=== PATIENT | female | born 1960 | race Caucasian/White ===

== ENCOUNTER 2016-08-25 15:37 | Inpatient (IN) | payer OTHER ==
[~2016-08-25] VITALS: Ht 152.4 cm; Wt 104.2 kg
[~2016-08-25 15:37] MED LIST: ALBU8.5H3 INH; AMLO-218 PO; ATOR10TA65 PO; AZIT250T94 PO; CETI10CA PO; FLUT9.9S NASAL; GUAI118L94 PO; METO-429 PO; SYN1 PO; TRIA1CAP PO
[2016-08-25] MEDS ORDERED: ASPIRIN 325 MG TAB PO STA (16:50)
[2016-08-25] MEDS ORDERED: NITROGLYCERIN 2% 1 GM OINT PKT TD STA (16:50)
--- NOTE | 2016-08-25 17:12 | ERA ---
ER Documentation Chief Complaint Date/Time DATE: 08/25/16 TIME: 17:10 Chief Complaint SOB WITH CHEST PAIN FOR THE PAST FEW DAYS. N/V. NO DIAPHORESIS HPI 56-year-old female history of morbid obesity, hypertension, who presents the emergency room with chest pain. She describes several days of chest pain that is pressure-like, exertional with associated shortness of breath. No PND orthopnea, no lower extremity swelling. She denies prior stress testing. No family history of cardiac disease. She denies any pleuritic pain, travel, calf swelling. Mild discomfort 2 out of 10 currently. ROS All systems reviewed and are negative except as per history of present illness. Medications Home Meds Active Scripts Metoprolol Tartrate* (Lopressor*) 50 Mg Tab, 50 MG PO BID, #60 Prov:GORDO MARTINEZ 03/13/14 Reported Medications Levothyroxine Sodium* (Synthroid*) 125 Mcg Tablet, 125 MCG PO BEFORE BREAKFAST, #30 TAB 08/25/16 Triamterene/Hctz* (Maxzide (37.5-25)*) 1 Each Tablet, 1 EACH PO DAILY, #30 TAB 08/25/16 Aspirin* (Aspirin* EC) 81 Mg Tablet.dr, 81 MG PO DAILY, TAB 08/25/16 Amlodipine Besylate* (Norvasc*) 10 Mg Tablet, 10 MG PO DAILY, 0 Refills 09/03/11 Discontinued Reported Medications Levothyroxine Sodium (Levothroid) 100 Mcg Tablet, 100 MCG PO DAILY, 0 Refills 09/03/11 Triamterene/Hydrochlorothiazid (Triamterene W/Hctz 50/25 Cap) 1 Cap Capsule, 1 CAP PO DAILY, 0 Refills 09/03/11 Discontinued Scripts Azithromycin* (Zithromax*) 250 Mg Tablet, 250 MG PO .KatherinePACK DIRECTED, #6 TAB TAKE 500 MG (2 TABS) THE FIRST DAY THEN 250 MG (1 TAB) DAYS 2-5 Prov:LU REDMOND NP 10/15/15 Cetirizine Hcl* (Zyrtec*) 10 Mg Capsule, 10 MG PO DAILY, #30 TAB.CHEW Prov:LU REDMOND NP 10/15/15 Guaifenesin-Codeine Phosphate* (Guaifenesin* with Codeine Liq) 120 Ml Liquid, 5 ML PO Q4H for COUGH, #120 ML Prov:LU REDMOND NP 10/15/15 Fluticasone Propionate (Flonase Allergy Relief) 9.9 Ml Dixon.susp, 1 SPRAY NASAL BID, #1 BOTTLE TO EACH NOSTRIL Prov:LU REDMOND NP 10/15/15 Albuterol Sulfate* (Proair HFA*) 8.5 Gm Hfa.aer.ad, 2 PUFF INH Q4H Y for WHEEZING AND SOB, #1 INHALER Prov:LU REDMOND TORCH SOLDERER 10/15/15 Atorvastatin Calcium (Atorvastatin Calcium) 10 Mg Tab, 10 MG PO HS, #30 TAB Prov:GORDO MARTINEZ S. 03/13/14 Allergies Allergies: Coded Allergies: No Known Drug Allergy (Verified Allergy, Unknown, 08/25/16) PMhx/Soc History of Surgery: Yes (cholecystectomy) Anesthesia Reaction: No Hx Neurological Disorder: No Hx Respiratory Disorders: No Hx Cardiac Disorders: Yes (htn) Hx Psychiatric Problems: No Hx Miscellaneous Medical Probl: Yes (hypothyroid) Hx Alcohol Use: No Hx Substance Use: No Hx Tobacco Use: No FmHx Family History: No coronary disease, No diabetes Physical Exam Vitals Vital Signs Date Time Temp Pulse Resp B/P Pulse Ox O2 Delivery O2 Flow Rate FiO2 08/25/16 17:12 56 18 92/53 98 Nasal Cannula 2.0 08/25/16 17:00 Nasal Cannula 2 08/25/16 15:42 97.8 65 22 118/58 96 Physical Exam General: Well developed, well nourished, no acute distress Head: Normocephalic, atraumatic. Eyes: Pupils equally reactive, EOM intact ENT: Moist mucous membranes Neck: Supple, no lymphadenopathy Respiratory: Lungs clear bilaterally, no distress Cardiovascular: RRR, no murmurs, rubs, or gallops Abdominal: Soft, non-tender, non-distended, no peritoneal signs : Deferred MSK: No edema, no unilateral swelling, 5/5 strength Neurologic: Alert and oriented, moving all extremities, normal speech, no focal weakness, no cerebellar signs Skin: No rash Psych: Normal mood Result Diagram: 08/25/16 1700 08/25/16 1700 Results 24 hrs Laboratory Tests Test 08/25/16 17:00 Activated Partial Thromboplast Time 29.9Sec Alanine Aminotransferase (ALT/SGPT) 46IU/L Albumin 4.0g/dl Albumin/Globulin Ratio 1.21 Alkaline Phosphatase 85IU/L Anion Gap 15 Aspartate Amino Transf (AST/SGOT) 27IU/L B-Type Natriuretic Peptide 58PG/ML Basophils # 0.010^3/ul Basophils % 0.6% Blood Urea Nitrogen 29mg/dl Calcium Level 9.1mg/dl Carbon Dioxide Level 29mmol/L Chloride Level 99mmol/L Creatinine 0.94mg/dl Direct Bilirubin 0.00mg/dl Eosinophils # 0.710^3/ul Eosinophils % 9.9% Globulin 3.30g/dl Glucose Level 107mg/dl Hematocrit 37.7% Hemoglobin 12.3g/dl INR International Normalized Ratio 0.91 Indirect Bilirubin 0.1mg/dl Lymphocytes # 2.210^3/ul Lymphocytes % 31.7% Mean Corpuscular Hemoglobin 29.0pg Mean Corpuscular Hemoglobin Concent 32.6g/dl Mean Corpuscular Volume 88.9fl Mean Platelet Volume 14.2fl Monocytes # 0.510^3/ul Monocytes % 6.9% Neutrophils # 3.610^3/ul Neutrophils % 50.6% Nucleated Red Blood Cells # 0.010^3/ul Nucleated Red Blood Cells % 0.0/100WBC Platelet Count 82674^3/UL Potassium Level 3.4mmol/L Prothrombin Time 12.2Sec Prothrombin Time Ratio 1.0 Red Blood Count 4.2410^6/ul Red Cell Distribution Width 14.3% Sodium Level 140mmol/L Total Bilirubin 0.1mg/dl Total Protein 7.3g/dl Troponin I < 0.012ng/ml White Blood Count 7.110^3/ul Current Medications Medications (Trade) Dose Ordered Sig/Lisa Route PRN Reason Start Time Stop Time Status Last Admin Dose Admin Aspirin (Aspirin) 325 mg ONCE STAT PO 08/25/16 16:50 08/25/16 16:51 DC 08/25/16 16:59 Nitroglycerin (Nitroglycerin 2% Oint) 1 inch ONCE STAT TD 08/25/16 16:50 08/25/16 16:51 DC 08/25/16 17:00 Procedures/MDM EKG, MONITORS, & DIAGNOSTIC IMAGING: EKG: I reviewed and interpreted a 12-lead EKG. Rhythm: Normal sinus rhythm Ectopy: None Intervals: No abnormalities ST segments: No elevations or depressions T waves: No contiguous inversions Repeat EKG: EKG: I reviewed and interpreted a 12-lead EKG. Rhythm: Normal sinus rhythm Ectopy: None Intervals: No abnormalities ST segments: No elevations or depressions T waves: No contiguous inversions Chest x-ray: I reviewed and interpreted a 1 view of the chest Mediastinum: No enlargement Cardiac silhouette: No cardiomegaly Airspace: Clear lung mad[place] bilaterally without evidence of pneumothorax Bones: No evidence of fracture LAB INTERPRETATION: Negative troponin MEDICAL DECISION MAKING: The patient's history, physical exam and clinical presentation is concerning for possible cardiogenic etiology and acute coronary syndrome. Based on the patient's clinical exam and history and risk factors, I have a much lower clinical concern for pulmonary embolism, acute aortic dissection, pneumothorax, pneumonia, cardiac tamponade HEART Score: 3 MACE Rate: 1.7% Shared Decision Making: We had a conversation regarding risk stratification, MACE rate, and the risks, benefits, alternatives of disposition planning options. Disposition planning: Given the patient's progressive, exertional symptoms I would recommend inpatient hospitalization, patient is agreeable. ER COURSE: Patient given aspirin and Nitropaste I kept the patient and/or family informed of laboratory and diagnostic imaging results throughout the emergency room course. DISPOSITION PLAN: Telemetry admission for management of chest pain to rule out acute coronary syndrome, risk stratification, consideration for provocative testing CONSULTATION: Accepting care team and consultations: I discussed the current laboratory data, diagnostic imaging and emergency care provided. Admitting team: Dr. Bryant Admitting team indication: Insurance directed patient is unstable for transfer given active chest pain. Departure Diagnosis: Primary Impression: Chest pain Qualified Code: R07.9 - Chest pain, unspecified type Condition: Stable PAU HERNANDEZ MD Aug 25, 2016 17:12
--- NOTE | 2016-08-25 17:16 | RADRPT ---
PROCEDURE: XR Chest. CLINICAL INDICATION: Chest pain and shortness of breath. TECHNIQUE: Single frontal view. COMPARISON: 10/15/2015. FINDINGS: The lungs are clear. The heart size is normal. There is no pleural effusion. There is no pneumothorax. IMPRESSION: 1. Normal chest radiograph. 2. No change from 10/15/2015. RPTAT: QQ .Casey Finch MD, MD Date Time Electronically viewed and signed by .Casey Finch MD, MD on 08/25/2016 17:15 .R/
[2016-08-25 17:22] LABS: ADD SCAN DIFF NO
[2016-08-25 17:35] LABS: INR 0.91; PARTIAL THROMBOPLASTIN TIME 29.9 Sec (25.0-35.0); PROTIME 12.2 Sec (12.2-14.2)
[2016-08-25 17:43] LABS: CHLORIDE 99 mmol/L (97-110)
[2016-08-25 17:44] LABS: BASOPHILS % 0.6 % (0.0-2.0); EOSINOPHILS # 0.7 10^3/ul (0.0-0.5); EOSINOPHILS % 9.9 % (0.0-7.0); HEMATOCRIT 37.7 % (37.0-47.0); HEMOGLOBIN 12.3 g/dl (12.0-16.0); LYMPHOCYTES # 2.2 10^3/ul (0.8-2.9); LYMPHOCYTES % 31.7 % (15.0-51.0); MEAN CORPUSCULAR HGB CONC 32.6 g/dl (32.0-37.0); MEAN CORPUSCULAR VOLUME 88.9 fl (82.0-101.0); MEAN PLATELET VOLUME 14.2 fl (7.4-10.4); MONOCYTE # 0.5 10^3/ul (0.3-0.9); MONOCYTES % 6.9 % (0.0-11.0); NEUTROPHIL # 3.6 10^3/ul (1.6-7.5); NEUTROPHILS % 50.6 % (39.0-77.0); PLATELET COUNT 165 10^3/UL (140-415); POTASSIUM 3.4 mmol/L (3.5-5.1); RED BLOOD COUNT 4.24 10^6/ul (4.20-5.40); RED CELL DISTRIBUTION WIDTH 14.3 % (11.5-14.5); SODIUM 140 mmol/L (135-144); WHITE BLOOD COUNT 7.1 10^3/ul (4.8-10.8)
[2016-08-25 17:46] LABS: ALBUMIN/GLOBULIN RATIO 1.21; ALKALINE PHOSPHATASE 85 IU/L (42-121); ANION GAP 15 (8-16); ASPARTATE AMINO TRANSFERASE 27 IU/L (15-46); BILIRUBIN,INDIRECT 0.1 mg/dl (0-1.1); BILIRUBIN,TOTAL 0.1 mg/dl (0.2-1.3); BLOOD UREA NITROGEN 29 mg/dl (7-20); CARBON DIOXIDE 29 mmol/L (21-31); CREATININE 0.94 mg/dl (0.44-1.00); GLUCOSE 107 mg/dl (70-220); TOTAL PROTEIN 7.3 g/dl (6.1-8.1)
[2016-08-25 17:47] LABS: ALANINE AMINOTRANSFERASE 46 IU/L (13-69); CALCIUM 9.1 mg/dl (8.4-10.2)
[2016-08-25] MEDS ORDERED: ASPI-664 PO (17:53)
[2016-08-25 17:55] LABS: B-TYPE NATRIURETIC PEPTIDE 58 PG/ML (0-125)
[2016-08-25] MEDS ORDERED: MAXZ25 PO (17:58)
[2016-08-25] MEDS ORDERED: LEVO125T PO (17:59)
[2016-08-25 18:00] LABS: TROPONIN-I < 0.012 ng/ml (0.00-0.12)
[2016-08-25] MEDS ORDERED: ONDANSETRON 4 MG INJ IV PRN ×2 (18:30→21:00)
[2016-08-25] MEDS ORDERED: ACETAMINOPHEN 325 MG TAB PO PRN ×2 (18:30→21:00)
[2016-08-25] MEDS ORDERED: NITROGLYCERIN (SL) 0.4 MG TAB SL PRN (21:00)
[2016-08-25] MEDS ORDERED: HYDROCODONE/APAP (5/325) TAB PO PRN (21:00)
[2016-08-25] MEDS: METOPROLOL 50 MG TAB PO SCH (21:00)
[2016-08-25] MEDS ORDERED: ALBUTEROL/IPRATROPIUM (NEB) 3 ML AMP HHN PRN (21:00)
[2016-08-25] MEDS ORDERED: MAGNESIUM HYDROXIDE 30ML CUP PO PRN (21:00)
[2016-08-25] MEDS ORDERED: hydrALAzine 20 MG INJ IV PRN (21:00)
[2016-08-25] MEDS ORDERED: LORAZEPAM 2 MG INJ IV PRN (21:00)
[2016-08-25] MEDS ORDERED: NA PHOSPHATE/BIPHOS 133 ML ENEMA PR PRN (21:00)
[2016-08-25] MEDS ORDERED: NACL 0.9% 3 ML SYG IV SCH (21:00)
[2016-08-25] MEDS ORDERED: DOCUSATE SODIUM 100 MG CAP PO PRN (21:00)
[2016-08-25 22:20] VITALS: TEMP 98.3
[2016-08-25 22:36] VITALS: PULSE 60
[2016-08-25 22:41] VITALS: Ht 152.4 cm; Wt 104.2 kg
[2016-08-25 22:54] LABS: CK-MB 0.45 ng/ml (0.0-2.4)
[2016-08-25 22:58] LABS: TROPONIN-I 0.012 ng/ml (0.00-0.12)
[2016-08-25] MEDS: morphine 2 MG INJ IV PRN (23:01)
[2016-08-25] MEDS: FAMOTIDINE 20 MG TAB PO SCH (23:03)
[2016-08-25] MEDS: HEPARIN 5,000 UNIT/0.5 ML SYG SC SCH (23:04)
[2016-08-25] MEDS: SOD CHLORIDE 0.45% 1,000 ML IV SCH (23:10)
[2016-08-25 23:33] VITALS: BP 149/70; PULSE 53; RESP 16
[2016-08-26] VITALS (11 sets, daily range): BP systolic 130–147; BP diastolic 60–75; PULSE 50–72; RESP 16–19
[2016-08-26 03:35] LABS: CREATINE KINASE 110 IU/L (23-200)
[2016-08-26 03:45] LABS: CK-MB 0.45 ng/ml (0.0-2.4)
[2016-08-26 03:59] LABS: TROPONIN-I < 0.012 ng/ml (0.00-0.12)
--- NOTE | 2016-08-26 06:43 | HP ---
DATE OF ADMISSION: 08/25/2016 The patient was seen and examined by me on 08/25/2014 at 8:30 p.m. IDENTIFICATION: This is a 56-year-old female. CHIEF COMPLAINT: Chest pain. HISTORY OF PRESENT ILLNESS: A 56-year-old female with past medical history of hypertension, morbid obesity, high cholesterol, hypothyroidism who presents with chest pain symptoms for the past few day s. Again, the patient has been having chest pain for the last few days, pressure-like in sensation, also somewhat exertional and with some mild shortness of breath symptoms, but no PND, no orthopnea, no lower extremity swelling, apparently no family history of any cardiac disease. No upper or lowe r GI bleeding. No nausea, vomiting, no fevers or chills. She describes the chest pressure is about 2/10 in intensity. PAST MEDICAL HISTORY: As stated above. ALLERGIES: NO KNOWN DRUG ALLERGIES. MEDICATIONS AT HOME: 1. Norvasc 10 mg daily. 2. Lopressor 50 mg b.i.d. 3. Aspirin 81 mg daily. 4. Maxzide 37.5/25 one tab daily. 5. Synthroid 125 mcg before breakfast. PAST SURGICAL HISTORY: Cholecystectomy In the past. SOCIAL HISTORY: Negative for smoking, drinking, or IV drug abuse. FAMILY HISTORY: No coronary artery disease or diabetes. PHYSICAL EXAMINATION: VITAL SIGNS: T-max 97.8, pulse 56 to 65, respirations 18 to 20, blood pressure 118 to 92 systolic o casimiro 58 to 53 diastolic, saturating at 98% on 3 liters nasal cannula. GENERAL: The patient is lying in bed, answering questions appropriately, in no acute distress. HEENT: Pupils equal, round, react to light. Extraocular muscles intact. NECK: Supple, no thyromegaly. LUNGS: Clear to auscultation bilaterally. CARDIOVASCULAR: S1, S2 heard. No rubs or gallops. ABDOMEN: Soft, nontender, nondistended. Normal bowel sounds. No rebound or guarding. MUSCULOSKELETAL: No lower extremity edema bilaterally. NEUROLOGIC: No focal deficits. LABORATORY DATA: CBC is completely normal. Actually the comprehensive metabolic panel is essential ly normal except the potassium was 3.4. The troponin is negative x1. IMAGING: The patient had a chest x-ray today that showed no pleural effusions, no pneumothorax, and normal chest radiograph. The patient had an EKG that showed normal sinus rhythm and no ST changes or T-wave inversions were noted. ASSESSMENT AND PLAN: A 56-year-old female coming in with chest pain symptoms, rule out acute abbott ry syndrome. 1. Chest pain. Admit the patient to telemetry floor; rule out for acute coronary syndrome. Trend her troponins. First one is negative thus far. Check 2 more every 6 hours. Put her on high dose a spirin, morphine, oxygen, and nitrates. Continue her beta donnell for now. Check TSH, A1c and lipi d panel. 2. History of hypothyroidism. Continue Synthroid. Check a thyroid panel. 3. History of high cholesterol. Check lipid panel. 4. Essential hypertension. Again continue current blood pressure medicines. 5. Gastrointestinal prophylaxis. Famotidine. 6. Deep venous thrombosis prophylaxis. Heparin subQ. Dictated By: GORDO GILL/SURAJ Conf#: [id number] DID#: [id number]
[2016-08-26 08:26] LABS: CK-MB 0.42 ng/ml (0.0-2.4)
[2016-08-26 08:29] LABS: TROPONIN-I 0.017 ng/ml (0.00-0.12)
[2016-08-26 08:39] LABS: CHOL/HDL RATIO 3.7 RATIO
[2016-08-26] MEDS: LEVOTHYROXINE 125 MCG TAB PO SCH (08:49)
[2016-08-26] MEDS: FAMOTIDINE 20 MG TAB PO SCH ×2 (08:49→21:14)
[2016-08-26] MEDS: METOPROLOL 50 MG TAB PO SCH ×2 (08:49→21:15)
[2016-08-26] MEDS: ASPIRIN (EC) 325 MG TAB PO SCH (08:49)
[2016-08-26] MEDS: HEPARIN 5,000 UNIT/0.5 ML SYG SC SCH ×2 (08:49→21:16)
[2016-08-26 09:04] LABS: THYROID STIMULATING HORMONE 2.1 MIU/L (0.465-4.680)
[2016-08-26 09:27] LABS: ADD SCAN DIFF NO
[2016-08-26 09:33] LABS: POTASSIUM 3.1 mmol/L (3.5-5.1)
[2016-08-26 09:33] LABS: BASOPHILS % 0.5 % (0.0-2.0); EOSINOPHILS # 0.6 10^3/ul (0.0-0.5); EOSINOPHILS % 11.1 % (0.0-7.0); HEMATOCRIT 38.2 % (37.0-47.0); HEMOGLOBIN 12.5 g/dl (12.0-16.0); LYMPHOCYTES # 0.8 10^3/ul (0.8-2.9); LYMPHOCYTES % 14.3 % (15.0-51.0); MEAN CORPUSCULAR HEMOGLOBIN 29.2 pg (29.0-33.0); MEAN CORPUSCULAR HGB CONC 32.7 g/dl (32.0-37.0); MEAN CORPUSCULAR VOLUME 89.3 fl (82.0-101.0); MEAN PLATELET VOLUME 14.2 fl (7.4-10.4); MONOCYTE # 0.3 10^3/ul (0.3-0.9); MONOCYTES % 5.1 % (0.0-11.0); NEUTROPHIL # 3.8 10^3/ul (1.6-7.5); NEUTROPHILS % 68.8 % (39.0-77.0); PLATELET COUNT 128 10^3/UL (140-415); RED BLOOD COUNT 4.28 10^6/ul (4.20-5.40); RED CELL DISTRIBUTION WIDTH 14.4 % (11.5-14.5); WHITE BLOOD COUNT 5.5 10^3/ul (4.8-10.8)
[2016-08-26 09:36] LABS: CREATININE 0.6 mg/dl (0.44-1.00); PHOSPHORUS 3.5 mg/dl (2.5-4.9)
[2016-08-26 09:37] LABS: CALCIUM 8.3 mg/dl (8.4-10.2); MAGNESIUM 2.1 mg/dl (1.7-2.5)
[2016-08-26 09:46] LABS: CK-MB 0.43 ng/ml (0.0-2.4)
[2016-08-26 09:49] LABS: TROPONIN-I 0.015 ng/ml (0.00-0.12)
[2016-08-26] MEDS: SOD CHLORIDE 0.45% 1,000 ML IV SCH (10:02)
--- NOTE | 2016-08-26 17:17 | PN ---
Date/Time of Note Date/Time of Note DATE: 08/26/16 TIME: 17:15 Assessment/Plan VTE Prophylaxis VTE Prophylaxis Intervention: SCD's Lines/Catheters [facility] [place] [facility] Urinary Cath still in place: No Assessment/Plan Chief Complaint/Hosp Course Impression and plan 1. Chest pain. Serial troponins to be trended. Follow-up on echocardiogram. Continue on antiplatelet therapy. Continue telemetry monitoring. 2. Hypothyroidism. Patient to be resumed on her Synthroid 3. Dyslipidemia. Low-fat low-cholesterol diet to be resumed 4. essential hypertension. Continue antihypertensives and adjust as needed DVT prophylaxis: Heparin GERD prophylaxis: H2 donnell Disposition and plan: Follow-up on echocardiogram. DC when medically stable Discussed plan of care with Dr. Bryant Problems: Subjective 24 Hr Interval Summary Free Text/Dictation Reports less chest pain today Exam/Review of Systems Vital Signs Vitals Vital Signs Date Time Temp Pulse Resp B/P Pulse Ox O2 Delivery O2 Flow Rate FiO2 08/26/16 16:15 97.9 66 17 138/75 97 08/26/16 10:16 21 08/26/16 08:00 Nasal Cannula 2.0 Intake and Output 08/25/16 08/25/16 08/26/16 15:00 23:00 07:00 Intake Total 775 ml Balance 775 ml Exam General: Comfortable at present no apparent distress Eyes: Pupils equal round Neck: Supple nontender, no JVD Cardiac: S1-S2 auscultated. Remains in regular rate Pulmonary: No adventitious lung sounds GI: Soft nontender nondistended Extremities: No edema noted bilateral lower extreme Skin: Is clean dry and intact Neurologic: Alert and oriented 4 Results Result Diagram: 08/26/16 0904 08/26/16 0647 Results 24 hrs Laboratory Tests Test 08/25/16 22:05 08/26/16 02:50 08/26/16 06:47 08/26/16 09:04 Creatine Kinase 128 110 108 Creatine Kinase Index 0.4 0.4 0.4 Creatinine Kinase MB (Mass) 0.45 0.45 0.43 Troponin I 0.012 < 0.012 0.015 Anion Gap 15 Blood Urea Nitrogen 19 # Calcium Level 8.3 L Carbon Dioxide Level 28 Chloride Level 101 Cholesterol Level 184 Cholesterol/HDL Ratio 3.7 Creatinine 0.60 Glucose Level 100 HDL Cholesterol 49 Hemoglobin A1c 5.9 LDL Cholesterol, Calculated 107 Magnesium Level 2.1 Phosphorus Level 3.5 Potassium Level 3.1 L Sodium Level 141 Thyroid Stimulating Hormone (TSH) 2.100 Triglycerides Level 142 Basophils # 0.0 Basophils % 0.5 Eosinophils # 0.6 H Eosinophils % 11.1 H Hematocrit 38.2 Hemoglobin 12.5 Lymphocytes # 0.8 Lymphocytes % 14.3 L Mean Corpuscular Hemoglobin 29.2 Mean Corpuscular Hemoglobin Concent 32.7 Mean Corpuscular Volume 89.3 Mean Platelet Volume 14.2 H Monocytes # 0.3 Monocytes % 5.1 Neutrophils # 3.8 Neutrophils % 68.8 Nucleated Red Blood Cells # 0.0 Nucleated Red Blood Cells % 0.0 Platelet Count 128 #L Red Blood Count 4.28 Red Cell Distribution Width 14.4 White Blood Count 5.5 # Medications Medications Current Medications Ondansetron HCl (Zofran Inj) 4 mg Q6H PRN IV NAUSEA AND/OR VOMITING; Start at 21:00 Acetaminophen (Tylenol Tab) 650 mg Q6H PRN PO PAIN LEVEL 1-3 OR FEVER; Start at 21:00 Acetaminophen/ Hydrocodone Bitart ([place] (5/325)) 1 tab Q6H PRN PO MODERATE PAIN LEVEL 4-6; Start 08/25/16 at 21:00 Morphine Sulfate (morphine) 2 mg Q4H PRN IV SEVERE PAIN LEVEL 7-10 Last administered on 08/25/16 23:01; Admin Dose 2 MG; Start 08/25/16 at 21:00 Docusate Sodium (Colace) 100 mg Q12H PRN PO CONSTIPATION; Start 08/25/16 at 21: 00 Magnesium Hydroxide (Milk Of Mag) 30 ml DAILY PRN PO CONSTIPATION; Start at 21:00 Sodium Biphosphate/ Sodium Phosphate (Fleet Enema) 133 ml DAILY PRN [place] CONSTIPATION; Start 08/25/16 at 21:00 Famotidine (Pepcid) 20 mg Q12 PO Last administered on 08/26/16 08:49; Admin Dose 20 MG; Start 08/25/16 at 21:00 Heparin Sodium (Porcine) 5000 unit 5,000 unit Q12 SC Last administered on 08:49; Admin Dose 5,000 UNIT; Start 08/25/16 at 21:00 Sodium Chloride (1/2 NS) 1,000 ml @ 75 mls/hr [id number] IV Last administered on 08/25/16 23:10; Admin Dose 75 MLS/HR; Start 08/25/16 at 20:42 Lorazepam (Ativan) 0.5 mg Q6H PRN IV ANXIETY; Start 08/25/16 at 21:00 Hydralazine HCl (Apresoline) 10 mg Q6H PRN IV ELEVATED BLOOD PRESSURE; Start at 21:00 Clonidine (Catapres) 0.1 mg Q6H PRN PO ELEVATED BLOOD PRESSURE; Start 08/25/16 at 21:00 Nitroglycerin (Nitroglycerin (Sl Tab) 0.4 Mg) 1 tab Q5M PRN SL ANGINA; Start at 21:00 Aspirin (Ecotrin) 325 mg DAILY PO Last administered on 08/26/16 08:49; Admin Dose 325 MG; Start 08/26/16 at 09:00 Metoprolol Tartrate (Lopressor) 50 mg BID PO Last administered on 08/26/16 08: 49; Admin Dose 50 MG; Start 08/25/16 at 21:00 ANNE GONZALES Aug 26, 2016 17:17
[2016-08-26] MEDS: morphine 2 MG INJ IV PRN (21:15)
[2016-08-27] VITALS (12 sets, daily range): BP systolic 111–146; BP diastolic 55–86; PULSE 50–67; RESP 17–21
[2016-08-27] MEDS: SOD CHLORIDE 0.45% 1,000 ML IV SCH ×2 (00:18→18:27)
[2016-08-27] MEDS: LEVOTHYROXINE 125 MCG TAB PO SCH (08:13)
[2016-08-27 08:15] LABS: ADD SCAN DIFF NO
[2016-08-27 08:20] LABS: BASOPHILS % 0.3 % (0.0-2.0); EOSINOPHILS # 0.3 10^3/ul (0.0-0.5); EOSINOPHILS % 4.6 % (0.0-7.0); HEMATOCRIT 42.4 % (37.0-47.0); HEMOGLOBIN 13.7 g/dl (12.0-16.0); LYMPHOCYTES # 1.2 10^3/ul (0.8-2.9); LYMPHOCYTES % 20.2 % (15.0-51.0); MEAN CORPUSCULAR HGB CONC 32.3 g/dl (32.0-37.0); MEAN CORPUSCULAR VOLUME 89.6 fl (82.0-101.0); MEAN PLATELET VOLUME 14.1 fl (7.4-10.4); MONOCYTE # 0.4 10^3/ul (0.3-0.9); MONOCYTES % 6.6 % (0.0-11.0); NEUTROPHIL # 4.1 10^3/ul (1.6-7.5); PLATELET COUNT 151 10^3/UL (140-415); RED BLOOD COUNT 4.73 10^6/ul (4.20-5.40); RED CELL DISTRIBUTION WIDTH 14.6 % (11.5-14.5); WHITE BLOOD COUNT 6.1 10^3/ul (4.8-10.8)
[2016-08-27 08:51] LABS: POTASSIUM 3.2 mmol/L (3.5-5.1)
[2016-08-27 08:54] LABS: CREATININE 0.73 mg/dl (0.44-1.00)
[2016-08-27 08:55] LABS: CALCIUM 8.5 mg/dl (8.4-10.2)
[2016-08-27] MEDS: ASPIRIN (EC) 325 MG TAB PO SCH (08:59)
[2016-08-27] MEDS: FAMOTIDINE 20 MG TAB PO SCH ×2 (08:59→20:59)
[2016-08-27] MEDS: METOPROLOL 50 MG TAB PO SCH ×2 (08:59→21:01)
[2016-08-27] MEDS: HEPARIN 5,000 UNIT/0.5 ML SYG SC SCH ×2 (10:13→21:03)
[2016-08-27] MEDS ORDERED: POTASSIUM CHLORIDE (SR) 20 MEQ TAB PO STA (16:06)
--- NOTE | 2016-08-27 16:10 | PN ---
Date/Time of Note Date/Time of Note DATE: 08/27/16 TIME: 16:08 Assessment/Plan VTE Prophylaxis VTE Prophylaxis Intervention: SCD's Lines/Catheters [facility] Peripheral IV Urinary Cath still in place: No Assessment/Plan Chief Complaint/Hosp Course Impression and plan 1. Chest pain. Troponins negative.. Follow-up on echocardiogram. Continue on antiplatelet therapy. Continue telemetry monitoring. Plan for stress test. Bread Room Hand follow 2. Hypothyroidism. Continue Synthroid 3. Dyslipidemia. On low-fat low-cholesterol diet 4. essential hypertension. Continue antihypertensives and adjust as needed DVT prophylaxis: Heparin GERD prophylaxis: H2 donnell Disposition and plan: Plan for stress test. Awaiting echocardiogram. Bread Room Hand to follow. Discussed plan of care with Dr. Bryant Problems: Subjective 24 Hr Interval Summary Free Text/Dictation no s/s of distress Exam/Review of Systems Vital Signs Vitals Vital Signs Date Time Temp Pulse Resp B/P Pulse Ox O2 Delivery O2 Flow Rate FiO2 08/27/16 15:57 98.5 54 18 119/58 93 08/27/16 04:58 Room Air 08/26/16 10:16 21 08/26/16 08:00 2.0 Intake and Output 08/26/16 08/26/16 08/27/16 14:59 22:59 06:59 Intake Total 750 ml 575 ml Output Total 4 ml 3 ml Balance 746 ml 572 ml Exam General: No acute signs or symptoms of distress Eyes: pupils equal round, Anicteric sclera Neck: Supple nontender, no JVD Cardiac: S1, S2 auscultated, regular rhythm and rate Pulmonary: No coarse rhonchi or breathing auscultated GI: Abdomen soft nontender nondistended, bowel sounds active Extremities: No edema bilateral lower extremities Skin: Clean dry and intact Neurologic: Alert to person place and time and situation Results Result Diagram: 08/27/16 0750 08/27/16 0750 Results 24 hrs Laboratory Tests Test 08/27/16 07:50 Anion Gap 15 Basophils # 0.0 Basophils % 0.3 Blood Urea Nitrogen 15 Calcium Level 8.5 Carbon Dioxide Level 27 Chloride Level 104 Creatinine 0.73 Eosinophils # 0.3 Eosinophils % 4.6 Glucose Level 101 Hematocrit 42.4 Hemoglobin 13.7 Lymphocytes # 1.2 Lymphocytes % 20.2 Mean Corpuscular Hemoglobin 29.0 Mean Corpuscular Hemoglobin Concent 32.3 Mean Corpuscular Volume 89.6 Mean Platelet Volume 14.1 H Monocytes # 0.4 Monocytes % 6.6 Neutrophils # 4.1 Neutrophils % 68.0 Nucleated Red Blood Cells # 0.0 Nucleated Red Blood Cells % 0.0 Platelet Count 151 Potassium Level 3.2 L Red Blood Count 4.73 Red Cell Distribution Width 14.6 H Sodium Level 143 White Blood Count 6.1 Medications Medications Current Medications Ondansetron HCl (Zofran Inj) 4 mg Q6H PRN IV NAUSEA AND/OR VOMITING Last administered on 08/27/16 08:59; Admin Dose 4 MG; Start 08/25/16 at 21:00 Acetaminophen (Tylenol Tab) 650 mg Q6H PRN PO PAIN LEVEL 1-3 OR FEVER; Start at 21:00 Acetaminophen/ Hydrocodone Bitart ([place] (5/325)) 1 tab Q6H PRN PO MODERATE PAIN LEVEL 4-6; Start 08/25/16 at 21:00 Morphine Sulfate (morphine) 2 mg Q4H PRN IV SEVERE PAIN LEVEL 7-10 Last administered on 08/26/16 21:15; Admin Dose 2 MG; Start 08/25/16 at 21:00 Docusate Sodium (Colace) 100 mg Q12H PRN PO CONSTIPATION; Start 08/25/16 at 21: 00 Magnesium Hydroxide (Milk Of Mag) 30 ml DAILY PRN PO CONSTIPATION; Start at 21:00 Sodium Biphosphate/ Sodium Phosphate (Fleet Enema) 133 ml DAILY PRN ME CONSTIPATION; Start 08/25/16 at 21:00 Famotidine (Pepcid) 20 mg Q12 PO Last administered on 08/27/16 08:59; Admin Dose 20 MG; Start 08/25/16 at 21:00 Heparin Sodium (Porcine) 5000 unit 5,000 unit Q12 SC Last administered on 10:13; Admin Dose 5,000 UNIT; Start 08/25/16 at 21:00 Sodium Chloride (1/2 NS) 1,000 ml @ 75 mls/hr [id number] IV Last administered on 08/27/16 00:18; Admin Dose 75 MLS/HR; Start 08/25/16 at 20:42 Lorazepam (Ativan) 0.5 mg Q6H PRN IV ANXIETY; Start 08/25/16 at 21:00 Hydralazine HCl (Apresoline) 10 mg Q6H PRN IV ELEVATED BLOOD PRESSURE; Start at 21:00 Clonidine (Catapres) 0.1 mg Q6H PRN PO ELEVATED BLOOD PRESSURE; Start 08/25/16 at 21:00 Nitroglycerin (Nitroglycerin (Sl Tab) 0.4 Mg) 1 tab Q5M PRN SL ANGINA; Start at 21:00 Aspirin (Ecotrin) 325 mg DAILY PO Last administered on 08/27/16 08:59; Admin Dose 325 MG; Start 08/26/16 at 09:00 Metoprolol Tartrate (Lopressor) 50 mg BID PO Last administered on 08/27/16 08: 59; Admin Dose 50 MG; Start 08/25/16 at 21:00 ANNE GONZALES Aug 27, 2016 16:10
--- NOTE | 2016-08-27 17:46 | CONS ---
DATE OF ADMISSION: 08/25/2016 DATE OF CONSULTATION: 08/27/2016 REASON FOR CONSULTATION: Chest pain, assess for acute coronary syndrome. REQUESTING PHYSICIAN: ____ and Anne Fritz NP HISTORY OF PRESENT ILLNESS: Ms. Kirill Montanez is a 56-year-old female with a history of hypothyr oidism, hypertension, who initially presented with complaints of substernal chest pain described as a pressure-like sensation occurring both at rest and with exertion. Upon arrival, temperature 97.8, blood pressure 118/58, pulse 65, respirations 22, saturating 96%. The patient's labs revealed sodi um 140, potassium 3.4, creatinine 0.9, BUN 29, AST 27, ALT 46. Troponin negative. Free T4 1.37. T SH is 2.1. LDL 107, HDL 49. White count 7.1, hemoglobin 12.3, platelet count 165. The patient und erwent a chest x-ray revealing normal chest radiograph, lungs clear. The patient's electrocardiogra m with normal sinus rhythm, rate of 62, normal axis and intervals. T-wave flattening in the anterio r leads, left atrial enlargement. The patient was admitted to the floor. Since admit to floor, has had 2 further troponins which were negative for ____, ruling her out for acute myocardial infarctio n. Denies ongoing chest pain at this time. PAST MEDICAL HISTORY: As above in HPI. MEDICATIONS CURRENTLY IN HOSPITAL: 1. Aspirin 325 mg daily. 2. Synthroid 125 mcg daily. 3. Zofran p.r.n. 4. Tylenol p.r.n. 5. [place] p.r.n. 6. Morphine p.r.n. 7. Colace p.r.n. 8. Pepcid 20 mg q. 12. 9. Heparin 5000 subq 12. 10. Ativan p.r.n. 11. DuoNebs p.r.n. 12. Hydralazine p.r.n. 13. Clonidine p.r.n. 14. Metoprolol 50 mg p.o. b.i.d. 15. IV fluid hydration 75 mL an hour. ALLERGIES: NO KNOWN DRUG ALLERGIES. SOCIAL HISTORY: No tobacco, ETOH or illicit drug use. FAMILY HISTORY: No history of sudden cardiac or early CAD. REVIEW OF SYSTEMS: As above in HPI. CONSTITUTIONAL: No fevers, chills. PULMONARY: No current shortness of breath. CARDIOVASCULAR: No current chest pain, but chest pain on admit. GASTROINTESTINAL: No vomiting, but loose stools. GENITOURINARY: No hematuria. MUSCULOSKELETAL: Degenerative joint disease. PHYSICAL EXAMINATION: VITAL SIGNS: Temperature of 98.5, blood pressure 119/58, pulse 54, respiratory rate 18, saturating 93%. GENERAL: The patient is alert, awake, in no acute distress. NECK: JVP approximately 8 cm water. CHEST: Fair movement throughout, mild decreased breath sounds at bases bilaterally. HEART: Bradycardic, regular rhythm, normal S1, S2, I/ systolic murmur, nondisplaced PMI. ABDOMEN: Positive bowel sounds, soft. Obese. EXTREMITIES: Trace edema, 1+ pulses bilaterally, posterior tibial. LABORATORIES: Most recent from today, sodium 143, potassium 3.2, creatinine 0.7, BUN of 15. Tropon in negative x3. White cells 6.1, hemoglobin 13.7, platelet count 151. IMAGING STUDIES: As above in HPI. No further imaging studies for my review at this time. ECG: As above in HPI. No further electrocardiograms for my review at this time. IMPRESSION: 1. Chest pain, assess for acute coronary syndrome with negative troponins x3 at this time. 2. Abnormal electrocardiogram with T-wave flattening in the anterior leads. 3. Hypertension, under reasonable control. 4. Loose stools. 5. Hypothyroidism. 6. Bradycardia. 7. Hyperkalemia. RECOMMENDATIONS: 1. At this time, would maintain the patient on telemetry monitoring to follow rhythm and rate close ly. 2. Continue the patient's beta donnell as tolerated, it might cause the patient's mild bradyarrhyth willie. 3. Will schedule the patient for a Lexiscan Cardiolite stress test to take place in the morning to assess for the possibility of significant ____symptoms of chest pain, abnormal electrocardiographic findings. 4. Ongoing evaluation of the patient's loose stools with C. diff to be stent. 5. Replete the patient's potassium, likely from ____. 6. Continue the patient's aspirin and continue the patient's Synthroid. Thank you for allowing me to take part in the care of this patient. I will continue to follow her nehemiah reynaga closely with you with further recommendations to be made as the patient progresses through her [facility] clinical course. Dictated By: RADHA HOPPER/SURAJ Conf#: [id number] DID#: [id number] CC: ANNE FRITZ INSPECTION ENGINEER;*EndCC*
--- NOTE | 2016-08-27 19:07 | RADRPT ---
Echocardiogram Report Patient Name: CAPRICE MILES Gender: Female Date: 1960 Study Date: 26-Aug-2016 Cyber Security Specialist: [facility] Location: [id number] Ref. Physician: GORDO MARTINEZ Quality: Technically Difficult Study Procedures: Transthoracic echocardiogram with complete 2D, M-Mode, and doppler examination. Indications: Chest Pain. 2D/M Mode Doppler Measurement Value Normal Ranges Measurement Value Normal Ranges LVIDd 2D 4.6 3.5 - 5.6 cm AV Peak Som 1.7 m/sec LVIDs 2D 3.1 2.1 - 4.1 cm AV Peak PG 12.0 mmHg LVPWd 2D 1.0 0.6 - 1.1 cm LVOT Peak Som 1.0 m/sec IVSd 2D 1.0 0.6 - 1.1 cm LVOT Peak PG 4.3 mmHg EDV 2D 98.4 cm3 MV E Peak Som 0.9 m/sec ESV 2D 29.7 cm3 MV A Peak Som 1.2 m/sec MV E/A 0.8 MV Decel Time 305 msec MV Decel Maury 3 MV E/A 0.8 Findings Left Ventricle: Normal left ventricular systolic function. Normal left ventricular cavity size. Normal left ventricular wall thickness. Ejection fraction is visually estimated at 55 %. Abnormal Diastolic Function. Right Ventricle: Normal right ventricular size. Normal right ventricular systolic function. Left Atrium: Upper limit of normal left atrial size. Right Atrium: The right atrium is normal in size. Mitral Valve: Mild mitral annular calcification. Mild to moderate mitral valve regurgitation. Aortic Valve: Trace aortic valve regurgitation. Tricuspid Valve: Tricuspid valve not well visualized. There is trace tricuspid regurgitation. Pulmonic Valve: There is trace pulmonic regurgitation. Pericardium: Normal pericardium with no significant pericardial effusion. Aorta: Normal aortic root. IVC: Normal size and poor respiratory collapse consistent with elevated right atrial pressure. Conclusions 1.Normal left ventricular systolic function. Normal left ventricular cavity size. Normal left ventricular wall thickness. Ejection fraction is visually estimated at 55 %. Abnormal Diastolic Function. 2.Mild mitral valve regurgitation. 3.Trace aortic valve regurgitation. 4.Tricuspid valve not well visualized. There is trace tricuspid regurgitation. 5.There is trace pulmonic regurgitation. Electronically Signed By: Florentino Ivy 27-Aug-2016 19:06:41 -0700 Patient Name: CAPRICE MILES Study Date: 26-Aug-[id number]
[2016-08-28] VITALS (8 sets, daily range): BP systolic 113–148; BP diastolic 57–67; PULSE 47–62; RESP 18–21
[2016-08-28] MEDS: SOD CHLORIDE 0.45% 1,000 ML IV SCH ×2 (02:05→09:07)
[2016-08-28] MEDS: METOPROLOL 50 MG TAB PO SCH (09:00)
[2016-08-28] MEDS: FAMOTIDINE 20 MG TAB PO SCH (09:06)
[2016-08-28] MEDS: LEVOTHYROXINE 125 MCG TAB PO SCH (09:06)
[2016-08-28] MEDS: ASPIRIN (EC) 325 MG TAB PO SCH (09:06)
[2016-08-28] MEDS: HEPARIN 5,000 UNIT/0.5 ML SYG SC SCH (09:10)
[2016-08-28 10:29] LABS: ADD SCAN DIFF NO
[2016-08-28 10:32] LABS: BASOPHILS % 0.5 % (0.0-2.0); EOSINOPHILS # 0.3 10^3/ul (0.0-0.5); HEMATOCRIT 42.1 % (37.0-47.0); HEMOGLOBIN 13.4 g/dl (12.0-16.0); LYMPHOCYTES # 1.7 10^3/ul (0.8-2.9); LYMPHOCYTES % 42.6 % (15.0-51.0); MEAN CORPUSCULAR HEMOGLOBIN 28.9 pg (29.0-33.0); MEAN CORPUSCULAR HGB CONC 31.8 g/dl (32.0-37.0); MEAN CORPUSCULAR VOLUME 90.9 fl (82.0-101.0); MEAN PLATELET VOLUME 13.6 fl (7.4-10.4); MONOCYTE # 0.3 10^3/ul (0.3-0.9); MONOCYTES % 7.8 % (0.0-11.0); NEUTROPHIL # 1.6 10^3/ul (1.6-7.5); NEUTROPHILS % 41.8 % (39.0-77.0); PLATELET COUNT 146 10^3/UL (140-415); RED BLOOD COUNT 4.63 10^6/ul (4.20-5.40); RED CELL DISTRIBUTION WIDTH 14.7 % (11.5-14.5); WHITE BLOOD COUNT 3.9 10^3/ul (4.8-10.8)
[2016-08-28 10:45] LABS: CREATININE 0.73 mg/dl (0.44-1.00)
[2016-08-28 10:46] LABS: CALCIUM 8.3 mg/dl (8.4-10.2)
[2016-08-28] MEDS ORDERED: REGADENOSON 0.4 MG/5 ML SYG ONE (11:24)
--- NOTE | 2016-08-28 11:43 | CONS ---
Date/Time of Note Date/Time of Note DATE: 08/28/16 TIME: 11:40 Assessment/Plan Assessment/Plan Chief Complaint/Hosp Course IMPRESSION: 1. Chest pain, assess for acute coronary syndrome with negative troponins x3 at this time. 2. Abnormal electrocardiogram with T-wave flattening in the anterior leads. 3. Hypertension, under reasonable control. 4. Loose stools. 5. Hypothyroidism.-NL TSH 6. Bradycardia.-NL TSH/Free T4 7. Hypokalemia-improved Recc: -Tele -Continue asa -Contnue current synthroid -Lexsiscan stress test today Problems: Consultation Date/Type/Reason Admit Date/Time Aug 25, 2016 at 18:30 Initial Consult Date 08/28/16 Type of Consultation: Cardiology Reason for Consultation abnl ecg/chest pain Referring Provider: NYLA ALATORRE MD Exam/Review of Systems Vital Signs Vitals Vital Signs Date Time Temp Pulse Resp B/P Pulse Ox O2 Delivery O2 Flow Rate FiO2 08/28/16 08:09 49 08/28/16 08:06 98.1 18 113/57 98 08/27/16 04:58 Room Air 08/26/16 10:16 21 08/26/16 08:00 2.0 Intake and Output 08/27/16 08/27/16 08/28/16 15:00 23:00 07:00 Intake Total 1640 ml Balance 1640 ml Exam Review of Systems: CONSTITUTIONAL: No fevers, chills. PULMONARY: No sob CARDIOVASCULAR: No chest pain/palpitations GASTROINTESTINAL: No nausea/vomiting. GENITOURINARY: No hematuria/dysuria. MUSCULOSKELETAL: No myagias/arthalgias. PSYCHIATRIC: The patient denies depression. NEUROLOGIC: No weakness Constitutional: alert, oriented Psych: no complaints Head: normocephalic ENMT: mucosa pink and moist Neck: jvd (9 cm water), supple Respiratory: clear to auscultation Cardiovascular: regular rate and rhythm Gastrointestinal: non-tender, soft Musculoskeletal: muscle tone (normal) Extremities: edema (none) Neurological: other (No focal deficits) Results Result Diagram: 08/28/16 1021 08/28/16 1021 Results 24 hrs Laboratory Tests Test 08/28/16 10:21 Anion Gap 16 Basophils # 0.0 Basophils % 0.5 Blood Urea Nitrogen 14 Calcium Level 8.3 L Carbon Dioxide Level 25 Chloride Level 109 Creatinine 0.73 Eosinophils # 0.3 Eosinophils % 7.0 Glucose Level 93 Hematocrit 42.1 Hemoglobin 13.4 Lymphocytes # 1.7 Lymphocytes % 42.6 Mean Corpuscular Hemoglobin 28.9 L Mean Corpuscular Hemoglobin Concent 31.8 L Mean Corpuscular Volume 90.9 Mean Platelet Volume 13.6 H Monocytes # 0.3 Monocytes % 7.8 Neutrophils # 1.6 Neutrophils % 41.8 Nucleated Red Blood Cells # 0.0 Nucleated Red Blood Cells % 0.0 Platelet Count 146 Potassium Level 4.0 Red Blood Count 4.63 Red Cell Distribution Width 14.7 H Sodium Level 146 H White Blood Count 3.9 #L Medications Medications Current Medications Ondansetron HCl (Zofran Inj) 4 mg Q6H PRN IV NAUSEA AND/OR VOMITING Last administered on 08/27/16 08:59; Admin Dose 4 MG; Start 08/25/16 at 21:00 Acetaminophen (Tylenol Tab) 650 mg Q6H PRN PO PAIN LEVEL 1-3 OR FEVER; Start at 21:00 Acetaminophen/ Hydrocodone Bitart ([place] (5/325)) 1 tab Q6H PRN PO MODERATE PAIN LEVEL 4-6; Start 08/25/16 at 21:00 Morphine Sulfate (morphine) 2 mg Q4H PRN IV SEVERE PAIN LEVEL 7-10 Last administered on 08/26/16 21:15; Admin Dose 2 MG; Start 08/25/16 at 21:00 Docusate Sodium (Colace) 100 mg Q12H PRN PO CONSTIPATION; Start 08/25/16 at 21: 00 Magnesium Hydroxide (Milk Of Mag) 30 ml DAILY PRN PO CONSTIPATION; Start at 21:00 Sodium Biphosphate/ Sodium Phosphate (Fleet Enema) 133 ml DAILY PRN [place] CONSTIPATION; Start 08/25/16 at 21:00 Famotidine (Pepcid) 20 mg Q12 PO Last administered on 08/28/16 09:06; Admin Dose 20 MG; Start 08/25/16 at 21:00 Heparin Sodium (Porcine) 5000 unit 5,000 unit Q12 SC Last administered on 09:10; Admin Dose 5,000 UNIT; Start 08/25/16 at 21:00 Sodium Chloride (1/2 NS) 1,000 ml @ 75 mls/hr [id number] IV Last administered on 08/28/16 09:07; Admin Dose 75 MLS/HR; Start 08/25/16 at 20:42 Lorazepam (Ativan) 0.5 mg Q6H PRN IV ANXIETY; Start 08/25/16 at 21:00 Hydralazine HCl (Apresoline) 10 mg Q6H PRN IV ELEVATED BLOOD PRESSURE; Start at 21:00 Clonidine (Catapres) 0.1 mg Q6H PRN PO ELEVATED BLOOD PRESSURE; Start 08/25/16 at 21:00 Nitroglycerin (Nitroglycerin (Sl Tab) 0.4 Mg) 1 tab Q5M PRN SL ANGINA; Start at 21:00 Aspirin (Ecotrin) 325 mg DAILY PO Last administered on 08/28/16 09:06; Admin Dose 325 MG; Start 08/26/16 at 09:00 Metoprolol Tartrate (Lopressor) 50 mg BID PO Last administered on 08/27/16 21: 01; Admin Dose 50 MG; Start 08/25/16 at 21:00 RADHA ORTIZ Aug 28, 2016 11:43
--- NOTE | 2016-08-28 12:00 | CARRPT ---
DATE OF PROCEDURE: 08/28/2016 REASON FOR PROCEDURE: Chest pain, assess for ischemia. BASELINE VITAL SIGNS AND ELECTROCARDIOGRAM: Pulse 57, blood pressure 140/63. Electrocardiogram rev eals sinus bradycardia, rate of 57, normal axis, normal intervals, with isolated T-wave flattening i n lead aVL . PROCEDURE: The patient underwent standard Lexiscan infusion protocol over 10 seconds followed by ra diolabeled tracer. The patient's test was stopped due to completion of protocol. Maximal blood pre ssure during the test 133/65. Maximal heart rate during the test 92. ELECTROCARDIOGRAM FINDINGS: During Lexiscan infusion, the patient did not develop any new Lexiscan- induced ST or T-wave changes from baseline abnormalities. No documented PVCs. SYMPTOMS: The patient had mild complaints of shortness of breath resolved in recovery. No chest pa in. IMPRESSION: 1. No Lexiscan-induced ST or T changes from baseline abnormalities diagnostic of cardiac ischemia. 2. No complaints of chest pain during stress testing. Positive shortness of breath, which resolved in recovery. No documented premature ventricular contractions during stress testing. 3. Report of nuclear images to follow in separate dictation. Dictated By: RADHA HOPPER/SURAJ Conf#: [id number] DID#: [id number] CC: PETRONA ARNAA MD;*EndCC*
--- NOTE | 2016-08-28 12:39 | RADRPT ---
PROCEDURE: Nuclear medicine myocardial perfusion scan CLINICAL INDICATION: Chest pain TECHNIQUE: 30.0 mCi of technetium 99m Cardiolite was administered for the stress study. 10.8 mCi of technetium 99m Cardiolite was administered for the resting study. The patient was stressed with 0 .4 mg of Lexiscan. Images were reviewed in the short axis, vertical long axis, and horizontal long axis views. Wall motion was assessed and ejection fraction was calculated as well. Images were revi ewed on a high-resolution PACS workstation. COMPARISON: None available FINDINGS: Left ventricular size is within normal limits. There is moderate soft tissue and bowel attenuation artifact. The stress tomographic images demonstrate a normal pattern of perfusion. The resting félix ographic images demonstrate a similar pattern. There is no evidence for reversible ischemia. Wall motion is normal. The ejection fraction is calculated at 62%. IMPRESSION: 1. Negative myocardial perfusion scan. 2. There is no evidence for reversible ischemia. 3. Normal wall motion with normal ejection fraction of 62%. RPTAT: HMJB .Juancarlos Zheng MD, MD Date Time Electronically viewed and signed by .Juancarlos Zheng MD, MD on 08/28/2016 12:39 .B/
[2016-08-28] MEDS ORDERED: METO-429 PO (15:23)
[2016-08-28] MEDS ORDERED: AMLO-218 PO (15:23)
[2016-08-28] MEDS ORDERED: ASPI-664 PO (15:25)
[2016-08-28] MEDS ORDERED: LEVO125T PO (15:25)
--- NOTE | 2016-08-28 15:29 | PDOCDIS ---
Discharge Instructions DIAGNOSIS Discharge Diagnosis: 1. Chest pain 2. Hypothyroid 3. Dyslipidemia 4. Essential hypertension 5. M HOME CARE INSTRUCTIONS: Diet Instructions: Reduced CalorieSpecial Diet: low-fat and low-cholesterol FOLLOW UP/APPOINTMENTS Appointments 1. Follow-up with your primary care provider within a week ANNE GONZALES Aug 28, 2016 15:29
== END 2016-08-28 16:30 | disposition home or self-care (01) | DRG 313 ==
LOC: E/R 15:37 → MS4 18:30
PROVIDERS: ADMIT Internal Medicine; ATTEND Internal Medicine
DX: R07.9 Chest pain, unspecified (principal); E87.5 Hyperkalemia; I10 Essential (primary) hypertension; E03.9 Hypothyroidism, unspecified; E78.00 Pure hypercholesterolemia, unspecified; E78.5 Hyperlipidemia, unspecified; R00.1 Bradycardia, unspecified
CPT/HCPCS: 36415; 71010; 78452; 80048; 80053; 80061; 82550; 82553; 83036; 83735; 83880; 84100; 84439; 84443; 84484; 85025; 85610; 85730; 87075; 93005; 93017; 93306; A9500; A9505; J2270; J2405; J2785

== ENCOUNTER 2018-04-03 10:55 | Emergency (ER) | END 2018-04-03 12:24 | disposition home or self-care (01) ==

== ENCOUNTER 2018-04-30 14:08 | Emergency (ER) | END 2018-04-30 18:37 | disposition home or self-care (01) ==